=== PATIENT | female | born 1995 | race Caucasian/White ===

== ENCOUNTER → 2022-03-20 05:20 | Observation (INO) ==
[~2022-03-20 05:20] MED LIST: Ondansetron 4 MG/2 ML VIAL IVP PRN; Ringers Solution, Lactated 1,000 ML IVC SCH
== END | disposition home or self-care (01) ==
LOC: 1NENULAB
PROVIDERS: ADMIT Obstetrics & Gynecology; ATTEND Obstetrics & Gynecology

== ENCOUNTER 2022-04-04 22:00 | Inpatient (IN) ==
[2022-04-04] MEDS ORDERED: *HR* Nalbuphine 10 MG/ML AMPUL IV PRN (22:15)
[2022-04-04] MEDS ORDERED: Naloxone 0.4 MG/ML INJ IVP PRN (22:15)
[2022-04-04] MEDS ORDERED: Famotidine 20 MG/2 ML VIAL IVP PRN (22:15)
[2022-04-04] MEDS ORDERED: Metoclopramide 10 MG/2 ML VIAL IVP PRN (22:15)
[2022-04-04] MEDS ORDERED: Lidocaine -MPF 1% 5 ML AMPUL INFILT PRN (22:15)
[2022-04-04] MEDS ORDERED: *HR* FentaNYL (PF) 100 MCG/2 ML VIAL IVP PRN (22:15)
[2022-04-04] MEDS ORDERED: Azithromycin 500 MG in 0.9 % Sodium Chloride 250 ML IVPB PRN (22:15)
[2022-04-04] MEDS ORDERED: miSOPROStoL 25 MCG TABLET PO PRN (22:15)
[2022-04-04] MEDS ORDERED: Ringers Solution, Lactated 1,000 ML IVC SCH (22:15)
[2022-04-04 22:59] LABS: Basophils % 0.3 %; Eosinophils # 0.1 K/mcL (0.0-0.6); Eosinophils % 1.2 %; Hematocrit 36.6 % (35.3-44.9); Hemoglobin 12.3 g/dL (11.5-15.4); Immature Granulocytes % 0.7 % (0-4); Lymphocytes # 2.3 K/mcL (0.6-4.6); Lymphocytes % 19.7 %; Mean Corpuscular HGB Conc 33.6 g/dL (31.6-35.5); Mean Corpuscular Hemoglobin 28.9 pg (28.0-33.3); Mean Corpuscular Volume 86.1 fL (83.0-100.0); Mean Platelet Volume 12.4 fL (9.4-12.4); Monocytes # 1.2 K/mcL (0.0-1.3); Monocytes % 10.4 %; Neutrophils # 7.9 K/mcL (1.6-8.9); Platelet Count 234 K/mcL (140-400); Red Blood Count 4.25 M/mcL (3.82-4.97); Red Cell Distribution Width 13.1 % (11.5-14.5); Segmented Neutrophils % 67.7 %; White Blood Count 11.7 K/mcL (4.3-11.1)
[2022-04-04 23:07] LABS: Amphetamine Screen,Urine Negative ng/mL (Cutoff=1000); Barbiturate Screen,Urine Negative ng/mL (Cutoff=200); Benzodiazepines Screen,Urine Negative ng/mL (Cutoff=200); Cannabinoid Screen,Urine Negative ng/mL (Cutoff = 50); Cocaine Screen,Urine Negative ng/mL (Cutoff= 300); Opiate Screen,Urine Negative ng/mL (Cutoff=300); Phencyclidine Screen,Urine Negative ng/mL (Cutoff=25)
[2022-04-05] MEDS ORDERED: Oxytocin 30 UNIT/503 ML BAG IVC SCH ×2 (04:45→17:37)
[2022-04-05] MEDS ORDERED: EPHEDrine 50 MG/ML VIAL IVP PRN (05:21)
[2022-04-05] MEDS ORDERED: Epidural Premix (fent/bupiv) 110 ML EP ONE (05:26)
[2022-04-05] MEDS ORDERED: Epidural Premix (fent/bupiv) 110 ML EP SCH (05:30)
[2022-04-05] MEDS: Ondansetron 4 MG/2 ML VIAL IVP PRN ×2 (07:17→13:17)
[2022-04-05] MEDS ORDERED: Ropivacaine/PF 0.2% 20 ML VIAL ONE (10:08)
[2022-04-05] MEDS ORDERED: *HR* FentaNYL (PF) 100 MCG/2 ML VIAL ONE (10:09)
[2022-04-05] MEDS ORDERED: Ondansetron ODT 4 MG TAB.RAPDIS SL PRN (17:37)
[2022-04-05] MEDS ORDERED: OXYTOCIN/RINGERS LACTATE 10 UNIT/166.6 ML BAG IVC ONE (17:37)
[2022-04-05] MEDS ORDERED: Scopolamine Patch 1.5 MG PATCH.TD72 TD ONE (18:17)
[2022-04-05] MEDS: Ibuprofen 600 MG TABLET PO SCH ×2 (18:28→23:48)
[2022-04-05] MEDS: Benzocaine/Menthol 56 GM AEROSOL SPRAY TP PRN (18:29)
[2022-04-05] MEDS: Lanolin 7 G OINT...G. TP PRN (18:56)
[2022-04-05] MEDS: Acetaminophen 325 MG TABLET PO SCH (23:48)
[2022-04-06] MEDS: Acetaminophen 325 MG TABLET PO SCH ×2 (03:31→13:32)
[2022-04-06] MEDS: Ibuprofen 600 MG TABLET PO SCH ×2 (03:31→13:32)
[2022-04-06 03:35] VITALS: O2SAT 97
[2022-04-06 04:40] LABS: Basophils % 0.2 %; Eosinophils # 0.1 K/mcL (0.0-0.6); Eosinophils % 0.9 %; Hematocrit 30.4 % (35.3-44.9); Immature Granulocytes % 0.4 % (0-4); Lymphocytes # 2.4 K/mcL (0.6-4.6); Lymphocytes % 14.8 %; Mean Corpuscular HGB Conc 33.2 g/dL (31.6-35.5); Mean Corpuscular Hemoglobin 29.5 pg (28.0-33.3); Mean Corpuscular Volume 88.9 fL (83.0-100.0); Mean Platelet Volume 12.6 fL (9.4-12.4); Monocytes # 1.3 K/mcL (0.0-1.3); Neutrophils # 12.2 K/mcL (1.6-8.9); Platelet Count 172 K/mcL (140-400); Red Blood Count 3.42 M/mcL (3.82-4.97); Red Cell Distribution Width 13.3 % (11.5-14.5); Segmented Neutrophils % 75.7 %; White Blood Count 16.1 K/mcL (4.3-11.1)
[2022-04-06 04:46] LABS: Hemoglobin 10.1 g/dL (11.5-15.4)
[2022-04-06 07:06] VITALS: BP 124/84; PULSE 74; TEMP 97.6
[2022-04-06] MEDS: Benzocaine/Menthol 56 GM AEROSOL SPRAY TP PRN (07:57)
[2022-04-06] MEDS: Lanolin 7 G OINT...G. TP PRN (07:57)
[2022-04-06] MEDS ORDERED: Famotidine 20 MG TABLET PO SCH (09:00)
[2022-04-06] MEDS ORDERED: Prenatal Vit/FA 1 EACH TABLET PO SCH (09:00)
== END 2022-04-06 16:25 | disposition home or self-care (01) | DRG 806 ==
LOC: 1NENULAB 22:01 → 1NENUOBS 04-05 18:08
PROVIDERS: ADMIT Student in an Organized Health Care Education/Training Program; ATTEND Student in an Organized Health Care Education/Training Program